=== PATIENT | male | born 1965 | race Caucasian/White ===

== ENCOUNTER 2020-04-16 21:58 | Emergency (ER) | payer OTHER ==
[~2020-04-16] VITALS: Ht 172.7 cm; Wt 88.6 kg
--- NOTE | 2020-04-16 22:01 | PHYS DOC ---
Past Medical History Past Medical History: High Cholesterol, Hypertension Smoking Status: Never Smoker General Adult EDM: Chief Complaint: FLANK PAIN HPI: HPI: Patient is a 54 year old male who presents with right-sided flank pain that began last night was intermittent and was better during the day today but then returned about an hour and a half ago and is now improved. Pain is worse with deep breaths. Patient denies shortness of breath but states when he takes deep breath the pain is worse. Pain is located in the right thoracic area and shoots through to the front. Pain is described as stabbing at times and currently is an ache. Patient denies any nausea vomiting blood in his urine or cough. Review of Systems: Review of Systems: Constitutional: Denies fever or chills. [] Eyes: Denies change in visual acuity. [] HENT: Denies nasal congestion or sore throat. [] Respiratory: Denies cough or shortness of breath. [] Cardiovascular: Denies chest pain or edema. [] GI: Denies abdominal pain, nausea, vomiting, bloody stools or diarrhea. [] : Denies dysuria. [] Musculoskeletal: Complains of right thoracic pain Integument: Denies rash. [] Neurologic: Denies headache, focal weakness or sensory changes. [] Endocrine: Denies polyuria or polydipsia. [] Lymphatic: Denies swollen glands. [] Psychiatric: Denies depression or anxiety. [] Heart Score: Risk Factors: Risk Factors: DM, Current or recent (<one month) smoker, HTN, HLP, family history of CAD, obesity. Risk Scores: Score 0 - 3: 2.5% MACE over next 6 weeks - Discharge Home Score 4 - 6: 20.3% MACE over next 6 weeks - Admit for Clinical Observation Score 7 - 10: 72.7% MACE over next 6 weeks - Early Invasive Strategies Physical Exam: PE: Constitutional: Well developed, well nourished, no acute distress, non-toxic appearance. [] HENT: Normocephalic, atraumatic, bilateral external ears normal, no trismus, nose normal. [] Eyes: PERRLA, EOMI, conjunctiva normal, no discharge. [] Neck: Normal range of motion, no tenderness, supple, no stridor. [] Cardiovascular:Heart rate regular rhythm, peripheral pulses intact, cap refill brisk Lungs & Thorax: Bilateral breath sounds clear, no respiratory distress Abdomen:, soft, no tenderness, no masses, no pulsatile masses. [] Skin: Warm, dry, no erythema, no rash. [] Back: No tenderness, no CVA tenderness. [] Extremities: No tenderness, no cyanosis, no clubbing, ROM intact, no edema. [] Neurologic: Alert and oriented X 3, normal motor function, normal sensory function, no focal deficits noted. [] Dorsiflexion of the great toes intact bilateral lower extremity Psychologic: Affect normal, judgement normal, mood normal. [] Current Patient Data: Labs: Laboratory Tests Test 04/16/20 22:15 04/16/20 22:30 Urine Collection Type Unknown Urine Color Yellow Urine Clarity Clear Urine pH 6.0 Urine Specific [place] <=1.005 Urine Protein Negative mg/dL Urine Glucose (UA) Negative mg/dL Urine Ketones (Stick) Negative mg/dL Urine Blood Negative Urine Nitrite Negative Urine Bilirubin Negative Urine Urobilinogen Dipstick 0.2 mg/dL Urine Leukocyte Esterase Negative Urine RBC Rare /HPF Urine WBC Occ /HPF Urine Squamous Epithelial Cells Few /LPF Urine Bacteria 0 /HPF White Blood Count 10.9 x10^3/uL Red Blood Count 4.94 x10^6/uL Hemoglobin 15.0 g/dL Hematocrit 44.0 % Mean Corpuscular Volume 89 fL Mean Corpuscular Hemoglobin 30 pg Mean Corpuscular Hemoglobin Concent 34 g/dL Red Cell Distribution Width 12.9 % Platelet Count 205 x10^3/uL Neutrophils (%) (Auto) 60 % Lymphocytes (%) (Auto) 24 % Monocytes (%) (Auto) 11 % Eosinophils (%) (Auto) 3 % Basophils (%) (Auto) 1 % Neutrophils # (Auto) 6.6 x10^3/uL Lymphocytes # (Auto) 2.7 x10^3/uL Monocytes # (Auto) 1.2 x10^3/uL Eosinophils # (Auto) 0.4 x10^3/uL Basophils # (Auto) 0.1 x10^3/uL D-Dimer (Viry) < 0.27 ug/mlFEU Sodium Level 139 mmol/L Potassium Level 4.3 mmol/L Chloride Level 102 mmol/L Carbon Dioxide Level 27 mmol/L Anion Gap 10 Blood Urea Nitrogen 22 mg/dL Creatinine 1.2 mg/dL Estimated GFR (Cockcroft-Gault) 63.3 BUN/Creatinine Ratio 18 Glucose Level 80 mg/dL Calcium Level 9.2 mg/dL Total Bilirubin 0.4 mg/dL Aspartate Amino Transf (AST/SGOT) 30 U/L Alanine Aminotransferase (ALT/SGPT) 55 U/L Alkaline Phosphatase 66 U/L Total Protein 7.9 g/dL Albumin 4.3 g/dL Albumin/Globulin Ratio 1.2 Lipase 125 U/L Current Medications Medications (Trade) Dose Ordered Sig/Tori Route PRN Reason Start Time Stop Time Status Last Admin Dose Admin Ketorolac Tromethamine (Toradol 30mg Vial) 30 mg STK-MED ONCE .ROUTE 04/16/20 22:44 04/16/20 22:44 DC Ketorolac Tromethamine (Toradol 15mg Vial) 30 mg 1X ONCE IVP 04/16/20 22:45 04/16/20 22:52 DC 04/16/20 22:48 Ketorolac Tromethamine (Toradol 30mg Vial) 30 mg 1X ONCE IVP 04/16/20 22:45 04/16/20 22:52 DC Sodium Chloride 1,000 ml @ 1,000 mls/hr 1X ONCE IV 04/16/20 23:00 04/16/20 23:59 DC 04/16/20 22:55 EKG: EKG: [] Radiology/Procedures: Radiology/Procedures: [][facility] [address] [place] [address] IMAGING REPORT Signed PATIENT: CORY RINCON ACCOUNT: [id number] : 1965 LOCATION: ER AGE: 54 SEX: M EXAM STATUS: REG ER ORD. PHYSICIAN: YEIMI JOHNSON MD REASON: right flank pain PROCEDURE: CHEST PA & LATERAL Exam: Chest 2 views INDICATION: Right flank pain TECHNIQUE: Frontal and lateral views of the chest Comparisons: None FINDINGS: The cardiomediastinal silhouette and pulmonary vessels are within normal limits. The lung and pleural spaces are clear. IMPRESSION: No acute cardiopulmonary process. Electronically signed by: Deborah Beniets MD (04/16/2020 10:53 PM) [id number] DICTATED and SIGNED BY: DEBORAH BENITES MD DATE: 04/16/20 [id number] [facility] [address] [place] [address] IMAGING REPORT Signed PATIENT: CORY RINCON ACCOUNT: [id number] : 1965 LOCATION: ER AGE: 54 SEX: M EXAM STATUS: REG ER ORD. PHYSICIAN: YEIMI JOHNSON MD REASON: r/o stone PROCEDURE: CT ABDOMEN PELVIS WO CONTRAST Exam: CT of abdomen and pelvis without contrast INDICATION: Flank pain TECHNIQUE: Sequential axial images through the abdomen and pelvis obtained without IV contrast. Sagittal and coronal reformatted images were reconstructed from the axial data and reviewed. Comparisons: None FINDINGS: Heart size is normal. No pericardial effusion. Visualized lung bases are clear. No pleural effusion. Evaluation of the solid organs is limited secondary to noncontrast technique. Liver, spleen, pancreas, gallbladder and adrenals are unremarkable. No perinephric inflammation or hydronephrosis. Several nonobstructing renal calculi are noted bilaterally. No ureteral calculi are seen. Bladder is distended and appears thin-walled. Prostate is not enlarged. Few scattered diverticula noted within the sigmoid colon without evidence of acute diverticulitis. Appendix is not identified. No free intra-abdominal air or fluid. No obstruction. Abdominal aorta has a normal course and caliber. No enlarged abdominal lymph nodes are identified. No suspicious osseous lesions or acute fractures. IMPRESSION: 1. Several bilateral nonobstructing renal calculi. No ureteral calculi or evidence for obstructive uropathy. 2. Diverticulosis without evidence of acute diverticulitis. Exposure: One or more of the following in the visualized dose reduction techniques were utilized for this examination: 1. Automated exposure control 2. Adjustment of the MA and/or KV according to patient size 3. Use of iterative of reconstructive technique Electronically signed by: Deborah Benites MD (04/16/2020 11:42 PM) [id number] DICTATED and SIGNED BY: DEBORAH BENITES MD DATE: 04/16/20 [id number] Course & Med Decision Making: Course & Med Decision Making Pertinent Labs and Imaging studies reviewed. (See chart for details) [] 54-year-old male presents with right-sided flank pain. Patient's work-up is negative other than some kidney stones but no ureteral stones. Patient underwent a d-dimer to rule out pulmonary embolism which was negative. Chest x- ray is negative for pneumothorax or infiltrate. Patient had an episode of pain in the ER that was significantly improved after fluids and Toradol. Patient is neurologically intact in his lower extremities and peripheral pulses are strong doubt thoracic aortic dissection or AAA or cauda equina. Chuck Disclaimer: Chuck Disclaimer: This electronic medical record was generated, in whole or in part, using a voice recognition dictation system. Departure Departure Impression: Primary Impression: Right flank pain Additional Impression: Kidney stones Disposition: 01 HOME, SELF-CARE Condition: STABLE Referrals: urology Patient Instructions: Flank Pain, Kidney Stones Additional Instructions: EMERGENCY DEPARTMENT GENERAL DISCHARGE INSTRUCTIONS THANK YOU for coming to [facility] Emergency Department (ED) today and trusting us with your care. We trust that you had a positive experience in our Emergency Department. If you wish to speak to the department Management you can contact the cutting department supervisor at . YOUR FOLLOW UP INSTRUCTIONS ARE FOLLOWS: Do you have a private doctor? If you do not have a private doctor, please ask for a resource list of physicians or clinics that may be able to assist you with follow up care. The Emergency Physician has interpreted your x-rays. The X-ray specialist will also review them. If there is a change in the findings you will be notified in 48 hours when at all possible. A lab test or lab culture may have been done, your results will be reviewed and you will be notified if you need a change in treatment. ADDITIONAL INSTRUCTIONS AND INFORMATION Your care today has been supervised by a physician who is specially trained in emergency care. Many problems require more than one evaluation for a complete diagnosis and treatment. We recommend that you schedule your follow up appointment as recommended to ensure complete treatment of your illness or injury. If you are unable to obtain follow up care and continue to have a problem, or if your condition worsens we recommend that you return to the ED. We are not able to safely determine your condition over the phone nor are we able to give sound medical advice over the phone. For these safety reasons, if you call for medical advice we will ask you to come to the ED for further evaluation If you have any questions regarding these discharge instructions please call the ED at . SAFETY INFORMATION In the interest of safety, wellness, and injury prevention; we encourage you to wear your seatbelt, if you smoke; quit smoking, and we encourage your family to use protective helmet for bicycling and other sporting events that present an increased risk for head injury. IF YOUR SYMPTOMS WORSEN OR NEW SYMPTOMS DEVELOP, OR YOU HAVE CONCERNS ABOUT YOUR CONDITION; OR IF YOUR CONDITION WORSENS WHILE YOU ARE WAITING FOR YOUR FOLLOW UP APPOINTMENT; EITHER CONTACT YOUR PRIMARY CARE DOCTOR, THE PHYSICIAN WHOSE NAME AND NUMBER YOU WERE GIVEN, OR RETURN TO THE ED IMMEDIATELY. Scripts Hydrocodone/Apap 5-325 (NORCO 5-325 TABLET) 1 Each Tablet 1-2 EACH PO PRN Q6HRS PRN for PAIN, #15 as needed for pain Prov: YEIMI JOHNSON MD 04/17/20 Justicifation of Admission Dx: Justifications for Admission: Justification of Admission Dx: N/A YEIMI JOHNSON MD Apr 16, 2020 22:01
[2020-04-16 22:26] LABS: BILIRUBIN,URINE NEGATIVE (NEG); CLARITY,URINE CLEAR; COLOR,URINE YELLOW; NITRITE,URINE NEGATIVE (NEG); PROTEIN,URINE NEGATIVE (NEG-TRACE); UROBILINOGEN,URINE 0.2 mg/dL (0.2 mg/dL)
[2020-04-16 22:30] LABS: BACTERIA,URINE 0 /HPF (0-FEW); RBC,URINE RARE /HPF (0-2); SQUAMOUS EPITHELIAL CELL,UR FEW /LPF; WBC,URINE OCC /HPF (0-4)
[2020-04-16 22:43] LABS: BASO # 0.1 x10^3/uL (0.0-0.2); BASO % 1 % (0-3); EOS # 0.4 x10^3/uL (0.0-0.7); EOS % 3 % (0-3); LYMPH # 2.7 x10^3/uL (1.0-4.8); LYMPH % 24 % (24-48); MEAN CORPUSCULAR HEMOGLOBIN 30 pg (25-35); MEAN CORPUSCULAR HGB CONC 34 g/dL (31-37); MEAN CORPUSCULAR VOLUME 89 fL (79-100); MONO # 1.2 x10^3/uL (0.0-1.1); MONO % 11 % (0-9); NEUT # 6.6 x10^3/uL (1.8-7.7); NEUT % 60 % (31-73); PLATELET COUNT 205 x10^3/uL (140-400); RED BLOOD COUNT 4.94 x10^6/uL (4.30-5.70); RED CELL DISTRIBUTION WIDTH 12.9 % (11.5-14.5); WHITE BLOOD COUNT 10.9 x10^3/uL (4.0-11.0)
[2020-04-16] MEDS ORDERED: KETOROLAC 30 MG/ML VIAL. ONE (22:44)
[2020-04-16] MEDS ORDERED: KETOROLAC 30 MG/ML VIAL. IVP ONE (22:45)
[2020-04-16] MEDS ORDERED: KETOROLAC 15 MG/ML VIAL. IVP ONE (22:45)
[2020-04-16] MEDS ORDERED: UNABLE MC (22:50)
--- NOTE | 2020-04-16 22:55 | RAD ---
Exam: Chest 2 views INDICATION: Right flank pain TECHNIQUE: Frontal and lateral views of the chest Comparisons: None FINDINGS: The cardiomediastinal silhouette and pulmonary vessels are within normal limits. The lung and pleural spaces are clear. IMPRESSION: No acute cardiopulmonary process. Electronically signed by: Deborah Rincon MD (04/16/2020 10:53 PM) [id number]
[2020-04-16 22:56] LABS: ALBUMIN 4.3 g/dL (3.4-5.0); ALBUMIN/GLOBULIN RATIO 1.2 (1.0-1.7); CALCIUM 9.2 mg/dL (8.5-10.1); CREATININE 1.2 mg/dL (0.7-1.3); GFR 63.3; POTASSIUM 4.3 mmol/L (3.5-5.1); TOTAL BILIRUBIN 0.4 mg/dL (0.2-1.0); TOTAL PROTEIN 7.9 g/dL (6.4-8.2)
[2020-04-16] MEDS ORDERED: IV NORMAL SALINE 1000ML BAG 1,000 ML IV ONE (23:00)
--- NOTE | 2020-04-16 23:45 | RAD ---
Exam: CT of abdomen and pelvis without contrast INDICATION: Flank pain TECHNIQUE: Sequential axial images through the abdomen and pelvis obtained without IV contrast. Sagittal and coronal reformatted images were reconstructed from the axial data and reviewed. Comparisons: None FINDINGS: Heart size is normal. No pericardial effusion. Visualized lung bases are clear. No pleural effusion. Evaluation of the solid organs is limited secondary to noncontrast technique. Liver, spleen, pancreas, gallbladder and adrenals are unremarkable. No perinephric inflammation or hydronephrosis. Several nonobstructing renal calculi are noted bilaterally. No ureteral calculi are seen. Bladder is distended and appears thin-walled. Prostate is not enlarged. Few scattered diverticula noted within the sigmoid colon without evidence of acute diverticulitis. Appendix is not identified. No free intra-abdominal air or fluid. No obstruction. Abdominal aorta has a normal course and caliber. No enlarged abdominal lymph nodes are identified. No suspicious osseous lesions or acute fractures. IMPRESSION: 1. Several bilateral nonobstructing renal calculi. No ureteral calculi or evidence for obstructive uropathy. 2. Diverticulosis without evidence of acute diverticulitis. Exposure: One or more of the following in the visualized dose reduction techniques were utilized for this examination: 1. Automated exposure control 2. Adjustment of the MA and/or KV according to patient size 3. Use of iterative of reconstructive technique Electronically signed by: Deborah Rincon MD (04/16/2020 11:42 PM) [id number]
[2020-04-17] MEDS ORDERED: HYDR-3164 PO (00:07)
[2020-04-17 00:18] VITALS: BP 116/68
== END 2020-04-17 00:25 | disposition home or self-care (01) ==
LOC: ER 21:58
DX: N20.0 Calculus of kidney (principal); K57.90 Diverticulosis of intestine, part unspecified, without perforation or abscess without bleeding; E78.00 Pure hypercholesterolemia, unspecified; I10 Essential (primary) hypertension
CPT/HCPCS: 36415; 71046; 74176; 80053; 81001; 83690; 84484; 85025; 85379; 96361; 96374; 99285; J1885; J7030

== ENCOUNTER 2021-04-10 16:10 | Emergency (ER) | payer OTHER ==
[~2021-04-10] VITALS: Ht 172.7 cm; Wt 87.2 kg
[~2021-04-10 16:10] MED LIST: HYDR-3164 PO; UNABLE MC
--- NOTE | 2021-04-10 16:32 | PHYS DOC ---
Past Medical History Past Medical History: High Cholesterol, Hypertension Past Surgical History: Knee Replacement Additional Past Surgical Histo: LUMBAR BACK,R KNEE Smoking Status: Never Smoker Alcohol Use: Occasionally General Adult EDM: Chief Complaint: FLANK PAIN HPI: HPI: Patient is a 55 year old male who present to ER for evaluation of right-sided flank pain started at 5 AM this morning. Patient does have a history of kidney stone. Patient denies any urinary symptoms. Patient also have history of hypertension, he is on blood pressure medication. Patient denies any chest pain, no cough, no fever. Patient denies any back pain, no numbness or weakness to his extremity. Review of Systems: Review of Systems: Constitutional: Denies fever or chills. [] Eyes: Denies change in visual acuity. [] HENT: Denies nasal congestion or sore throat. [] Respiratory: Denies cough or shortness of breath. [] Cardiovascular: Denies chest pain or edema. [] GI: Denies abdominal pain, nausea, vomiting, bloody stools or diarrhea. [] : Denies dysuria. [] Musculoskeletal: Denies back pain or joint pain. [] Integument: Denies rash. [] Neurologic: Denies headache, focal weakness or sensory changes. [] Endocrine: Denies polyuria or polydipsia. [] Lymphatic: Denies swollen glands. [] Psychiatric: Denies depression or anxiety. [] Heart Score: C/O Chest Pain: N/A Risk Factors: Risk Factors: DM, Current or recent (<one month) smoker, HTN, HLP, family history of CAD, obesity. Risk Scores: Score 0 - 3: 2.5% MACE over next 6 weeks - Discharge Home Score 4 - 6: 20.3% MACE over next 6 weeks - Admit for Clinical Observation Score 7 - 10: 72.7% MACE over next 6 weeks - Early Invasive Strategies Allergies: Allergies: Allergies Coded Allergies Type Severity Reaction Last Updated Verified No Known Drug Allergies 04/16/20 No Physical Exam: PE: Constitutional: Well developed, well nourished, no acute distress, non-toxic appearance. [] HENT: Normocephalic, atraumatic, bilateral external ears normal, oropharynx moist, no oral exudates, nose normal. [] Eyes: PERRLA, EOMI, conjunctiva normal, no discharge. [] Neck: Normal range of motion, no tenderness, supple, no stridor. [] Cardiovascular:Heart rate regular rhythm, no murmur [] Lungs & Thorax: Bilateral breath sounds clear to auscultation [] Abdomen: Bowel sounds normal, soft, no tenderness, no masses, no pulsatile masses. [] Skin: Warm, dry, no erythema, no rash. [] Back: No tenderness, right CVA tenderness. [] Extremities: No tenderness, no cyanosis, no clubbing, ROM intact, no edema. [] Neurologic: Alert and oriented X 3, normal motor function, normal sensory function, no focal deficits noted. [] Psychologic: Affect normal, judgement normal, mood normal. [] Current Patient Data: Labs: Laboratory Tests Test 04/10/21 16:25 04/10/21 16:28 Urine Collection Type Unknown Urine Color Yellow Urine Clarity Clear Urine pH 6.0 Urine Specific Cory 1.020 Urine Protein Negative mg/dL Urine Glucose (UA) Negative mg/dL Urine Ketones (Stick) Negative mg/dL Urine Blood Small Urine Nitrite Negative Urine Bilirubin Negative Urine Urobilinogen Dipstick 0.2 mg/dL Urine Leukocyte Esterase Negative Urine RBC 3-5 /HPF Urine WBC 0 /HPF Urine Bacteria 0 /HPF Urine Mucus Slight /LPF White Blood Count 16.5 x10^3/uL Red Blood Count 4.75 x10^6/uL Hemoglobin 14.4 g/dL Hematocrit 41.8 % Mean Corpuscular Volume 88 fL Mean Corpuscular Hemoglobin 30 pg Mean Corpuscular Hemoglobin Concent 35 g/dL Red Cell Distribution Width 12.2 % Platelet Count 193 x10^3/uL Neutrophils (%) (Auto) 89 % Lymphocytes (%) (Auto) 6 % Monocytes (%) (Auto) 5 % Eosinophils (%) (Auto) 0 % Basophils (%) (Auto) 0 % Neutrophils # (Auto) 14.7 x10^3/uL Lymphocytes # (Auto) 0.9 x10^3/uL Monocytes # (Auto) 0.8 x10^3/uL Eosinophils # (Auto) 0.0 x10^3/uL Basophils # (Auto) 0.1 x10^3/uL Segmented Neutrophils % 86 % Band Neutrophils % 10 % Lymphocytes % 1 % Monocytes % 3 % Platelet Estimate Adequate Sodium Level 137 mmol/L Potassium Level 4.1 mmol/L Chloride Level 100 mmol/L Carbon Dioxide Level 23 mmol/L Anion Gap 14 Blood Urea Nitrogen 18 mg/dL Creatinine 1.4 mg/dL Estimated GFR (Cockcroft-Gault) 52.8 BUN/Creatinine Ratio 13 Glucose Level 140 mg/dL Calcium Level 9.3 mg/dL Magnesium Level 1.6 mg/dL Total Bilirubin 0.4 mg/dL Aspartate Amino Transf (AST/SGOT) 32 U/L Alanine Aminotransferase (ALT/SGPT) 66 U/L Alkaline Phosphatase 82 U/L Total Protein 7.7 g/dL Albumin 3.8 g/dL Albumin/Globulin Ratio 1.0 Lipase 151 U/L Current Medications Medications (Trade) Dose Ordered Sig/Tori Route PRN Reason Start Time Stop Time Status Last Admin Dose Admin Morphine Sulfate (Morphine Sulfate) 4 mg 1X ONCE IVP 04/10/21 16:45 04/10/21 16:46 DC 04/10/21 16:41 Ondansetron HCl (Zofran) 4 mg 1X ONCE IVP 04/10/21 16:45 04/10/21 16:46 DC 04/10/21 16:41 Ondansetron HCl (Zofran) 4 mg STK-MED ONCE .ROUTE 04/10/21 16:38 04/10/21 16:38 DC Morphine Sulfate (Morphine Sulfate) 4 mg STK-MED ONCE .ROUTE 04/10/21 16:39 04/10/21 16:39 DC Magnesium Sulfate 50 ml @ 25 mls/hr 1X ONCE IV 04/10/21 17:00 04/10/21 18:59 04/10/21 17:27 Ketorolac Tromethamine (Toradol 30mg Vial) 30 mg 1X ONCE IVP 04/10/21 18:15 04/10/21 18:16 EKG: EKG: [] Radiology/Procedures: Radiology/Procedures: [][facility] [address] [place], [place] [id number] IMAGING REPORT Signed PATIENT: CORY RINCON ACCOUNT: [id number] : 1965 LOCATION: ER AGE: 55 SEX: M EXAM STATUS: REG ER ORD. PHYSICIAN: JANICE NUÑEZ DO REASON: RIGHT FLANK PAIN PROCEDURE: CT ABDOMEN PELVIS WO CONTRAST CT scan abdomen and pelvis without contrast 04/10/2021 CLINICAL HISTORY: Right flank pain. TECHNIQUE: Unenhanced, contiguous, 2 mm axial sections were obtained through the abdomen and pelvis. One or more of the following individualized dose reduction techniques were utilized for this study: 1. Automated exposure control. 2. Adjustment of the mA and/or kV according to patient size. 3. Use of iterative reconstruction technique. FINDINGS: Images through the lung bases demonstrate minimal dependent subseg mental atelectasis bilaterally. The liver, spleen, pancreas, and adrenal glands are within normal limits. Nonobstructing calculi are seen scattered throughout both kidneys. These measure 2 to 6 mm in size. There is no evidence of obstruction of the left collecting system. The right kidney is enlarged. Increased attenuation is seen within the fat surrounding the right kidney. Mild dilatation of the right intrarenal collecting system is seen. The right ureter is mild to moderately dilated in its proximal/midportion. Within the mid right ureter a 5 mm ureteral calculus is seen. This is causing mild to moderate obstruction of the right collecting system. It is at the level of the L4 vertebral body. No additional ureteral calculus is seen. Atherosclerotic calcification abdominal aorta is seen. The abdominal aorta tapers normally. The gallbladder is contracted. No free fluid or free air is seen within the abdomen. There is no evidence of bowel obstruction. Images through the pelvis demonstrate the urinary bladder distended with urine. Calcifications are seen within the pelvis consistent with phleboliths. The prostate gland is mildly enlarged likely related to BPH. No free fluid is seen. Very mild S-shaped curvature of the thoracolumbar spine is seen. Degenerative changes are seen involving lower thoracic and throughout the lumbar spine. IMPRESSION: 5 mm mid right ureteral calculus is seen which is causing mild to moderate obstruction of the right collecting system. Electronically signed by: Enoc Marx MD (04/10/2021 5:40 PM) [id number] DICTATED and SIGNED BY: ENOC MARX MD DATE: 04/10/21 [id number] Course & Med Decision Making: Course & Med Decision Making Pertinent Labs and Imaging studies reviewed. (See chart for details) [] Dragon Disclaimer: Dragon Disclaimer: This electronic medical record was generated, in whole or in part, using a voice recognition dictation system. Departure Departure Impression: Primary Impression: Kidney stone on right side Disposition: HOME / SELF CARE / HOMELESS Condition: IMPROVED Referrals: SAMI MILES MD (PCP) Patient Instructions: Kidney Stones Additional Instructions: Please call UROLOGY FOR FOLLOW UP IN 2 DAYS. [facility] / [place], [place] [address] [place] [address] [place] [address] [place] [address] [place] [address] [facility] [address], [address] [place] [address] Scripts Tamsulosin Hcl (FLOMAX) 0.4 Mg Cap.er.24h 1 CAP PO DAILY, #12 CAP 11 Refills Prov: JANICE NUÑEZ DO 04/10/21 Naproxen Sodium (ANAPROX DS) 550 Mg Tablet 1 TAB PO BID PRN for PAIN for 15 Days, #30 TAB 0 Refills Prov: JANICE NUÑEZ DO 04/10/21 Hydrocodone/Acetaminophen (Hydrocodone-Acetamin 5-325 mg) 1 Each Tablet 1 EACH PO Q6HRS PRN for PAIN, #15 TAB Prov: JANICE NUÑEZ DO 04/10/21 JANICE NUÑEZ DO Apr 10, 2021 16:32
[2021-04-10] MEDS ORDERED: ONDANSETRON PF 4 MG/2 ML VIAL. ONE (16:38)
[2021-04-10] MEDS ORDERED: MORPHINE SULFATE 4 MG/ML INJ. ONE (16:39)
[2021-04-10 16:42] LABS: BASO # 0.1 x10^3/uL (0.0-0.2); BASO % 0 % (0-3); EOS % 0 % (0-3); HEMATOCRIT 41.8 % (39.0-53.0); HEMOGLOBIN 14.4 g/dL (13.0-17.5); LYMPH # 0.9 x10^3/uL (1.0-4.8); LYMPH % 6 % (24-48); MEAN CORPUSCULAR HEMOGLOBIN 30 pg (25-35); MEAN CORPUSCULAR HGB CONC 35 g/dL (31-37); MEAN CORPUSCULAR VOLUME 88 fL (79-100); MONO # 0.8 x10^3/uL (0.0-1.1); MONO % 5 % (0-9); NEUT # 14.7 x10^3/uL (1.8-7.7); NEUT % 89 % (31-73); PLATELET COUNT 193 x10^3/uL (140-400); RED BLOOD COUNT 4.75 x10^6/uL (4.30-5.70); RED CELL DISTRIBUTION WIDTH 12.2 % (11.5-14.5); WHITE BLOOD COUNT 16.5 x10^3/uL (4.0-11.0)
[2021-04-10] MEDS ORDERED: ONDANSETRON PF 4 MG/2 ML VIAL. IVP ONE (16:45)
[2021-04-10] MEDS ORDERED: MORPHINE SULFATE 4 MG/ML INJ. IVP ONE (16:45)
[2021-04-10 16:51] LABS: CALCIUM 9.3 mg/dL (8.5-10.1); CREATININE 1.4 mg/dL (0.7-1.3); GFR 52.8; POTASSIUM 4.1 mmol/L (3.5-5.1)
[2021-04-10 16:57] LABS: ALBUMIN 3.8 g/dL (3.4-5.0); MAGNESIUM 1.6 mg/dL (1.8-2.4); TOTAL BILIRUBIN 0.4 mg/dL (0.2-1.0); TOTAL PROTEIN 7.7 g/dL (6.4-8.2)
[2021-04-10] MEDS ORDERED: MAGNESIUM SULFATE 2GM 50 ML IV ONE (17:00)
[2021-04-10 17:04] LABS: BACTERIA,URINE 0 /HPF (0-FEW); BILIRUBIN,URINE NEGATIVE (NEG); CLARITY,URINE CLEAR; COLOR,URINE YELLOW; NITRITE,URINE NEGATIVE (NEG); PROTEIN,URINE NEGATIVE (NEG-TRACE); UROBILINOGEN,URINE 0.2 mg/dL (0.2 mg/dL); WBC,URINE 0 /HPF (0-4)
[2021-04-10 17:12] LABS: % BANDS 10 % (0-9); % LYMPHS 1 % (24-48); % MONOS 3 % (0-10); % SEGS 86 % (35-66)
[2021-04-10 17:13] LABS: PLT ESTIMATE ADEQUATE (ADEQUATE)
--- NOTE | 2021-04-10 17:43 | RAD ---
CT scan abdomen and pelvis without contrast 04/10/2021 CLINICAL HISTORY: Right flank pain. TECHNIQUE: Unenhanced, contiguous, 2 mm axial sections were obtained through the abdomen and pelvis. One or more of the following individualized dose reduction techniques were utilized for this study: 1. Automated exposure control. 2. Adjustment of the mA and/or kV according to patient size. 3. Use of iterative reconstruction technique. FINDINGS: Images through the lung bases demonstrate minimal dependent subsegmental atelectasis bilate rally. The liver, spleen, pancreas, and adrenal glands are within normal limits. Nonobstructing calculi are seen scattered throughout both kidneys. These measure 2 to 6 mm in size. T here is no evidence of obstruction of the left collecting system. The right kidney is enlarged. Incre ased attenuation is seen within the fat surrounding the right kidney. Mild dilatation of the right in trarenal collecting system is seen. The right ureter is mild to moderately dilated in its proximal/mi dportion. Within the mid right ureter a 5 mm ureteral calculus is seen. This is causing mild to moder ate obstruction of the right collecting system. It is at the level of the L4 vertebral body. No addit ional ureteral calculus is seen. Atherosclerotic calcification abdominal aorta is seen. The abdominal aorta tapers normally. The gallb ladder is contracted. No free fluid or free air is seen within the abdomen. There is no evidence of b owel obstruction. Images through the pelvis demonstrate the urinary bladder distended with urine. Calcifications are se en within the pelvis consistent with phleboliths. The prostate gland is mildly enlarged likely relate d to BPH. No free fluid is seen. Very mild S-shaped curvature of the thoracolumbar spine is seen. Deg enerative changes are seen involving lower thoracic and throughout the lumbar spine. IMPRESSION: 5 mm mid right ureteral calculus is seen which is causing mild to moderate obstruction of the right collecting system. Electronically signed by: Enoc Marx MD (04/10/2021 5:40 PM) [id number]
[2021-04-10] MEDS ORDERED: KETOROLAC 30 MG/ML VIAL. IVP ONE (18:15)
[2021-04-10] MEDS ORDERED: TAMS0.4C97 PO (18:18)
[2021-04-10] MEDS ORDERED: HYDR-2759 PO (18:18)
[2021-04-10] MEDS ORDERED: NAPR-682 PO (18:18)
[2021-04-10 19:15] VITALS: BP 146/81
== END 2021-04-10 19:17 | disposition home or self-care (01) ==
LOC: ER 16:10
DX: N20.0 Calculus of kidney (principal); E78.00 Pure hypercholesterolemia, unspecified; I10 Essential (primary) hypertension
CPT/HCPCS: 36415; 74176; 80053; 81001; 83690; 83735; 85007; 85025; 96365; 96366; 96375; 99285; J1885; J2270; J2405; J3475